=== PATIENT | male | born 1960 | race Caucasian/White ===

== ENCOUNTER 2022-01-03 17:28 | Emergency (ER) | payer BC, OTHER ==
[2022-01-03 17:54] VITALS: TEMP 97.8; BMI 26.6
[2022-01-03] MEDS ORDERED: SODIUM CHLORIDE 0.9% 500 ML INFUS.BAG IV ONE (18:26)
[2022-01-03 18:53] LABS: VENOUS O2 SATURATION 58.1 % (70-80); VENOUS PCO2 43.3 mmHg (38-52); VENOUS PH 7.354 (7.310-7.410)
[2022-01-03 18:57] LABS: BASO % 1.1 % (0-2.0); EOS % 3.1 % (0-4.5); HEMATOCRIT 45.1 % (35.4-49); HEMOGLOBIN 15.2 GM/dL (11.7-16.9); LYMPH % 34.5 % (8-40); MCH 29.5 pg (25.7-33.7); MCHC 33.7 g/dl (32.0-35.9); MEAN CELL VOLUME 87.3 fl (80-96); MEAN PLT VOLUME 8.4 fl (7.5-11.1); MONO % 9.1 % (3.8-10.2); NEUT % 52.2 % (42.8-82.8); PLATELET COUNT 391 10^3/uL (134-434); RBC 5.17 M/mm3 (4.00-5.60); RDW 12.8 % (11.9-15.9); WHITE BLOOD COUNT 8.3 K/mm3 (4.0-10.0)
[2022-01-03 19:09] LABS: INR 0.89 (0.83-1.09); PROTHROMBIN TIME (PATIENT) 10.2 SEC (9.7-13.0)
[2022-01-03 19:15] LABS: CHLORIDE 103 mmol/L (98-107); SODIUM 138 mmol/L (136-145)
[2022-01-03 19:19] LABS: ALBUMIN 4.3 g/dl (3.4-5.0); ANION GAP 7 MMOL/L (8-16); BLOOD UREA NITROGEN 17.7 mg/dL (7-18); CALCIUM 9.8 mg/dL (8.5-10.1); CO2 27 mmol/L (21-32); MAGNESIUM 2.2 mg/dL (1.8-2.4)
[2022-01-03 19:21] LABS: CREATININE 1.2 mg/dL (0.55-1.3); SGOT/AST 9 U/L (15-37); SGPT/ALT 38 U/L (13-61)
[2022-01-03 19:23] LABS: TOT PROT 7.7 g/dl (6.4-8.2)
[2022-01-03 19:24] LABS: BILIRUBIN,TOTAL 0.3 mg/dL (0.2-1)
[2022-01-03 19:25] LABS: ALK PHOS 134 U/L (45-117)
[2022-01-03 19:35] LABS: GLUCOSE,RANDOM 434 mg/dL (74-106)
[2022-01-03 19:40] LABS: PH,URINE 5.5 (5.0-8.0); URINE APPEARANCE CLEAR; URINE BILIRUBIN NEGATIVE (NEGATIVE); URINE COLOR YELLOW; URINE GLUCOSE (UA) 3+ (NEGATIVE); URINE KETONE NEGATIVE (NEGATIVE); URINE LEUK ESTERASE NEGATIVE (NEGATIVE); URINE NITRITE NEGATIVE (NEGATIVE); URINE PROTEIN NEGATIVE (NEGATIVE); URINE UROBILINOGEN 0.2 mg/dL (0.2-1.0)
[2022-01-03] MEDS ORDERED: metFORMIN HCL 500 MG TABLET (FP) PO ONE (19:53)
[2022-01-03] MEDS ORDERED: SODIUM CHLORIDE 0.9% 1000 ML INFUS.BAG IV ONE (19:53)
[2022-01-03] MEDS ORDERED: metFORMIN HCL 500 MG TABLET (FP) ONE (19:55)
[2022-01-03 20:54] VITALS: BP 184/83; PULSE 89
== END 2022-01-03 21:02 | disposition home or self-care (01) ==
LOC: JER 17:28
DX: E11.9 Type 2 diabetes mellitus without complications (principal)
CPT/HCPCS: 36415; 80053; 81003; 82010; 82803; 82962; 83036; 83735; 84443; 85025; 85610; 85730; 93005; 93010; 99285-25

== ENCOUNTER 2024-12-25 14:50 | Emergency (ER) | payer BC ==
[2024-12-25 15:05] VITALS: BP 161/74; PULSE 108; RESP 18; TEMP 98.5; BMI 27.4
[2024-12-25 17:26] LABS: BASO % 0.3 % (0-2.0); HEMATOCRIT 37.1 % (35.4-49); HEMOGLOBIN 12.4 GM/dL (11.7-16.9); MCHC 33.3 g/dl (32.0-35.9); MEAN CELL VOLUME 87.1 fl (80-96); MEAN PLT VOLUME 8.5 fl (7.5-11.1); MONO % 8.4 % (3.8-10.2); NEUT % 84.3 % (42.8-82.8); PLATELET COUNT 247 10^3/uL (134-434); RBC 4.25 M/mm3 (4.00-5.60); RDW 13.1 % (11.9-15.9); WHITE BLOOD COUNT 17.5 K/mm3 (4.0-10.0)
[2024-12-25] MEDS ORDERED: ACETAMINOPHEN INJECTION 100 ML ONE (17:26)
[2024-12-25] MEDS ORDERED: MAG HYDROX/AL HYDROX/SIMETH 30 ML UNIT-DOSE CUP ONE (17:27)
[2024-12-25] MEDS ORDERED: ONDANSETRON 4 MG/2 ML VIAL ONE (17:27)
[2024-12-25] MEDS ORDERED: FAMOTIDINE 20 MG/50 ML IVPB 20 MG/50 ML MG IVPB ONE (17:27)
[2024-12-25] MEDS: ACETAMINOPHEN 1000 MG/100 ML BAG IVPB ONE (17:37)
[2024-12-25] MEDS: SODIUM CHLORIDE 1,000 ML IV STA (17:37)
[2024-12-25] MEDS: MAG HYDROX/AL HYDROX/SIMETH 30 ML UNIT-DOSE CUP PO ONE (17:37)
[2024-12-25] MEDS: FAMOTIDINE 20 MG/50 ML IVPB 20 MG/50 ML MG IVPB ONE (17:37)
[2024-12-25] MEDS: ONDANSETRON 4 MG/2 ML VIAL IVPUSH ONE (17:37)
[2024-12-25 17:53] LABS: POTASSIUM 3.8 mmol/L (3.5-5.1)
[2024-12-25 17:55] LABS: CALCIUM 8.2 mg/dL (8.5-10.1)
[2024-12-25 17:56] LABS: BLOOD UREA NITROGEN 18.7 mg/dL (7-18)
[2024-12-25 17:59] LABS: CREATININE 0.9 mg/dL (0.55-1.3)
[2024-12-25 18:00] LABS: BILIRUBIN,TOTAL 0.4 mg/dL (0.2-1); TOT PROT 6.7 g/dl (6.4-8.2)
[2024-12-25 18:32] LABS: EPI CELLS 5 /uL (0-25.1); HYALINE CASTS 0 /uL (0-3.1); PH,URINE 5.5 (5.0-8.0); URINE APPEARANCE CLEAR; URINE BACTERIA 3 /uL (0-1359); URINE BILIRUBIN NEGATIVE (NEGATIVE); URINE COLOR YELLOW; URINE GLUCOSE (UA) 3+ (NEGATIVE); URINE KETONE 1+ (NEGATIVE); URINE LEUK ESTERASE NEGATIVE (NEGATIVE); URINE NITRITE NEGATIVE (NEGATIVE); URINE PROTEIN 1+ (NEGATIVE); URINE UROBILINOGEN 0.2 mg/dL (0.2-1.0); URINE WBC 21 /uL (0-25.8)
[2024-12-25 19:32] LABS: HIV INTERPRETATION NEGATIVE (NEGATIVE)
[2024-12-25 21:44] LABS: URINE RBC 56.3 /uL (0-23.9); YEAST NOT SEEN (NEGATIVE)
== END 2024-12-26 01:00 | disposition home or self-care (01) ==
LOC: JER 14:50 → UNDOADMOB 22:20 → JERBED 22:20 → JER 12-26 01:22
PROC: 3E03329 Introduction of Other Anti-infective into Peripheral Vein, Percutaneous Approach (ICD-10-PCS; principal; 2024-12-25)
PROC: 3E033GC Introduction of Other Therapeutic Substance into Peripheral Vein, Percutaneous Approach (ICD-10-PCS; 2024-12-25)
PROC: 3E033NZ Introduction of Analgesics, Hypnotics, Sedatives into Peripheral Vein, Percutaneous Approach (ICD-10-PCS; 2024-12-25)
PROC: 3E033GC Introduction of Other Therapeutic Substance into Peripheral Vein, Percutaneous Approach (ICD-10-PCS; 2024-12-25)
DX: J18.9 Pneumonia, unspecified organism (principal); R11.2 Nausea with vomiting, unspecified; R19.7 Diarrhea, unspecified; R05.9 Cough, unspecified; R50.9 Fever, unspecified; R00.0 Tachycardia, unspecified; R10.84 Generalized abdominal pain; Z20.822 Contact with and (suspected) exposure to COVID-19
CPT/HCPCS: 0241U-QW; 36415; 71046-TC-FY; 71260-TC; 74177-TC; 80053; 81003; 82962; 84484; 85025; 86803; 87389; 87899; 93005; 93010; 99285-25; J0131; Q9967